=== PATIENT | female | born 1980 | race Caucasian/White ===

== ENCOUNTER → 2024-01-06 07:03 | Outpatient (REF) | payer OTHER, SELFPAY | LOC: RAD 07:03 | PROVIDERS: ATTENDING PHYSICIAN Otolaryngology; FAMILY PHYSICIAN Family Medicine | DX: J32.9 Chronic sinusitis, unspecified (principal) | CPT/HCPCS: 70486 ==

== ENCOUNTER 2024-02-21 20:13 | Emergency (ER) | payer OTHER, SELFPAY ==
[2024-02-21 20:18] VITALS: BP 114/64
--- NOTE | 2024-02-22 00:14 | ED.GENMED ---
History of Present Illness
General
Chief Complaint: Wound Check/Suture Removal
Source: patient
Exam Limitations: none
Time Seen by Provider: 02/21/24 23:54
Nursing documentation reviewed up to this point in time: agreed with
Travel History
Have you had any contact with someone who has COVID-19?: No
Do you have any symptoms of coronavirus? Fever > 100 degrees, chills, cough, shortness of breath, sore throat, loss of taste or smell, muscle aches, or headache?: No
History of Present Illness
History of Present Illness:
This is a 43-year-old woman who states, 2 weeks ago while installing new windows in her barn she inadvertently was stuck by a staple into her distal left long digit just beneath her nail. She states this stable embedded short distance underneath
her left long digit nail and she was able to promptly remove this in toto. The wound bled a bit and she thoroughly cleansed with soap and water. She has had no further issues with this finger nor now, she denies pain, no swelling, no redness nor
drainage.
She did follow-up with her PCP and was noted her last Tdap was 6 years ago. She was concerned that she needed a tetanus booster as the last Tdap was greater than 5 years ago but was reassured that she did not.
Since yesterday she has noticed bilateral jaw ache, worse with chewing but currently denies dental pain.
She does admit that she suffered a fracture of the left lower molar which was repaired just 1 week ago.
With bilateral jaw ache she was concerned for possible tetanus infection however has not had a fever, no other joint aches, no tremor nor muscle spasms.
She was evaluated at urgent care and did receive a Tdap today. She was wondering if she requires testing for tetanus immunity, wondering if she requires tetanus immunoglobulin.
Past History
Past History
ED Past Medical History: Asthma and Psychiatric
ED Past Surgical History: Tonsilectomy
Social History
Tobacco: Non-smoker
Personal:
Living: with family
Employment: Employed (Self-employed)
Family History
Family History: Other (Noncontributory)
Phy Exam
Physical Exam
Physical Exam:
PHYSICAL EXAMINATION:
General: 43-year-old woman appears her stated age, bright and alert, pleasant, appears in no acute distress. Easily communicative.
HEENT: Normocephalic, atraumatic. There is no facial edema nor erythema. Full mandible range of motion without difficulty. There is very minimal tenderness right TMJ joint. No appreciable dental tenderness.
Neuro: alert and oriented. no focal neurological deficits
Psychiatric: well kept. interactive and cooperative
Musculoskeletal: [Left long digit with no erythema, no soft tissue swelling, no tenderness to palpation. Full digit range of motion without difficulty nor pain.]
Course
Vital Signs
Initial and Last Documented VS:
Initial Vital Signs
Temp Pulse Resp BP Pulse Ox
98.1 F 65 18 114/64 100
02/21/24 20:18 02/21/24 20:18 02/21/24 20:18 02/21/24 20:18 02/21/24 20:18
Last Documented Vital Signs
Temp Pulse Resp BP Pulse Ox
98.1 F 78 18 107/72 100
02/21/24 20:18 02/22/24 00:21 02/21/24 20:18 02/22/24 00:21 02/21/24 20:18
MDM/Problems Addressed
Differential Diagnosis Includes:
Patient presents with concern for bilateral mandible discomfort a sense of stiffness with opening and closing her mouth and with chewing and was concerned for possible tetanus infection after left distal digit puncture wound from a new/clean staple.
She admits to puncture wound healed uneventfully without evidence of infection.
Otherwise has been feeling well, no fever, no acute illness.
We did discuss course of tetanus that arises from an infected wound for which is not present and 'lockjaw' from acute tetanus infection is a late presentation accompanied with generalized muscle spasms/tetanic muscle contractions, of which are
clearly not apparent.
Overall exam is benign. There is no dental tenderness, full mandible range of motion without difficulty. She does have a very mild tenderness right TMJ and her mild bilateral jaw discomfort may be mild TMJ in nature versus mild masseter muscle
strain from recent dental procedure just 1 week ago.
There is nothing on exam to suggest dental infection.
She did receive a Tdap booster today at urgent care which is appropriate and at this point no other interventions recommended.
Recommend Tylenol versus ibuprofen for TMJ/masseter muscle discomfort, soft diet over the next several days.
Follow-up with PCP as well as dentist as needed.
*Pulse Oximetry
Patient hypoxic: no
*Critical Care Note
Total Time (30-74mins, 75-104mins- exclusive of procedures): Not Applicable
ED Attending Note
-
Portions of this chart may have been created with voice recognition software.� Occasional wrong word or��sound alike� substitutions may have occurred due to the inherent limitations of voice recognition software.
Discharge Plan
Departure
Patient Disposition: Home (Routine Discharge)
Date of Disposition: 02/22/24
Time of Disposition: 00:14
Patient with high blood pressure during this ER visit?: No
Condition: Good
Discharge Problem:
Strain of masseter muscle
Instructions: Temporomandibular Joint (TMJ) Disorders (DC)
Referrals:
Trice Valle MD [Family Provider] - As needed
Interventions
Interventions:
*Risk Screen - Suicide Last Done: 02/21/24 20:18
*General Assessment Last Done: 02/21/24 20:18
*Neglect/Abuse Screening Last Done: 02/21/24 20:18
*ED COVID-19 Vaccine History Last Done: 02/21/24 20:18
*Nursing Disposition Last Done: 02/22/24 00:21
ED-Skin Assessment Last Done: 02/22/24 00:20
Discharge Date and Time
Discharge Date/Time: 02/22/24 00:22
Print Language: [id number]
[2024-02-22 00:21] VITALS: BP 107/72
== END 2024-02-22 00:22 | disposition home or self-care (01) ==
LOC: EMR 20:13
PROVIDERS: EMERGENCY PHYSICIAN Emergency Medicine; FAMILY PHYSICIAN Family Medicine
DX: R68.84 Jaw pain (principal); J45.909 Unspecified asthma, uncomplicated
CPT/HCPCS: 99282

== ENCOUNTER → 2024-03-15 13:47 | Outpatient (REF) | payer OTHER, SELFPAY | LOC: MRI 3T 13:47 | PROVIDERS: ATTENDING PHYSICIAN Internal Medicine Hematology & Oncology; FAMILY PHYSICIAN Family Medicine | DX: E83.119 Hemochromatosis, unspecified (principal) | CPT/HCPCS: 74183; A9575 ==

== ENCOUNTER → 2025-08-14 14:21 | Outpatient (REF) | payer OTHER, SELFPAY | LOC: WDC 14:21 | PROVIDERS: ATTENDING PHYSICIAN Family Medicine | DX: Z12.31 Encounter for screening mammogram for malignant neoplasm of breast (principal) | CPT/HCPCS: 77063; 77067 ==

== ENCOUNTER → 2025-08-24 09:33 | Outpatient (REF) | payer OTHER, SELFPAY | LOC: WDC 09:33 | PROVIDERS: ATTENDING PHYSICIAN Family Medicine | DX: R92.8 Other abnormal and inconclusive findings on diagnostic imaging of breast (principal) | CPT/HCPCS: 76642 ==